=== PATIENT | female | born 1980 | race Caucasian/White ===

== ENCOUNTER 2017-01-29 02:29 | Emergency (ER) | payer OTHER | END 2017-01-29 03:34 | disposition home or self-care (01) | LOC: ERS 02:29 | DX: Z77.21 Contact with and (suspected) exposure to potentially hazardous body fluids (principal); I10 Essential (primary) hypertension; F41.9 Anxiety disorder, unspecified; F32.9 Major depressive disorder, single episode, unspecified; F17.210 Nicotine dependence, cigarettes, uncomplicated; Z79.899 Other long term (current) drug therapy; W46.0XXA Contact with hypodermic needle, initial encounter | CPT/HCPCS: 36415; 86706; 86803; 87389; 99283 ==

== ENCOUNTER 2022-12-20 18:20 | Emergency (ER) | payer OTHER, BC ==
[2022-12-20] MEDS ORDERED: Cyclobenzaprine 10 MG TAB ONE (18:44)
[2022-12-20 18:58] LABS: #Monocytes 0.5 thou/uL (0.11-0.59); #Neutrophils 8.6 thou/uL (1.40-6.50); %Basophils 0.2 % (0.0-1.0); %Eosinophils 0.1 % (0.0-10.0); %Lymphocytes 11.1 % (21.0-51.0); %Monocytes 4.6 % (0.0-10.0); %Neutrophils 83.6 % (42.0-75.0); Hematocrit 43.4 % (36.0-47.0); Hemoglobin 14.7 g/dL (12.0-16.0); Mean Corpuscular HGB CONC 33.9 g/dL (32.0-36.0); Mean Corpuscular Hemoglobin 31.1 pg (27.0-31.0); Mean Corpuscular Volume 91.9 fl (78.0-98.0); Mean Platelet Volume 9.5 fL (7.4-10.4); Platelet Count 269 10x3/uL (130-400); RBC Distribution Width 12.3 % (11.5-14.5); Red Blood Cell (RBC) Count 4.72 mill/uL (4.20-5.40); White Blood Cell (WBC) Count 10.3 10x3/uL (4.8-10.8)
[2022-12-20 19:07] LABS: BHCG - Serum Negative (NEGATIVE); Pregs Control Background? CLEAR/WHITE (CLR/WHITE); Pregs Control Bar Appear? YES (CONTROL BAR)
[2022-12-20 19:17] LABS: Prothrombin Time 13.3 sec (12.0-14.7)
[2022-12-20] MEDS ORDERED: Ketorolac Tromethamine 30 MG/ML VIAL ONE (19:17)
[2022-12-20 19:23] LABS: ALT (SGPT) 19 U/L (8-55); AST (SGOT) 20 U/L (5-34); Alkaline Phosphatase 41 U/L (40-110); Anion Gap 14 mmol/L (10-20); BUN (Urea Nitrogen) 21 mg/dL (7.0-18.7); Bilirubin, Total 0.5 mg/dL (0.2-1.2); Calc. Creatinine Clearance 0 mL/min (70-130); Calcium 9.8 mg/dL (7.8-10.44); Carbon Dioxide 21 mmol/L (22-29); Chloride 106 mmol/L (98-107); Estimated GFR 93; Globulin 2.7 g/dL (2.4-3.5); Glucose 98 mg/dL (70-105); Potassium 4.7 mmol/L (3.5-5.1); Protein, Total 7.7 g/dL (6.0-8.3); Sodium 136 mmol/L (136-145)
== END 2022-12-20 20:22 | disposition home or self-care (01) ==
LOC: ERS 18:20
DX: S02.2XXA Fracture of nasal bones, initial encounter for closed fracture (principal); I10 Essential (primary) hypertension; Z79.899 Other long term (current) drug therapy; V43.92XA Unspecified car occupant injured in collision with other type car in traffic accident, initial encounter
CPT/HCPCS: 12011; 36415; 70450; 70486; 71045; 80053; 84703; 85025; 85610; 85730; 96374; J1885

== ENCOUNTER 2022-12-29 08:56 | Day surgery (SDC) | payer BC ==
[2022-12-28 14:13] VITALS: BMI 19.5
[2022-12-29] MEDS ORDERED: EPINEPHrine 1 MG/ML VIAL ONE (10:00)
[2022-12-29] MEDS ORDERED: Bacitracin Zinc Ointment 30 gm TUBE ONE (10:01)
[2022-12-29] MEDS ORDERED: Oxymetazoline HCl 0.05% (30 ML BOT) ONE ×2 (10:01→10:20)
[2022-12-29] MEDS ORDERED: Lidocaine 1% (PF) 30 ML VIAL ONE (10:01)
[2022-12-29] MEDS ORDERED: fentaNYL PF 100 MCG/2 ML SYRINGE ONE (10:13)
[2022-12-29] MEDS ORDERED: Rocuronium Bromide 10 MG/ML (10ML VIAL) ONE (10:30)
[2022-12-29] MEDS ORDERED: Glycopyrrolate 0.2 MG/ML 5 ML SYRINGE ONE (10:30)
[2022-12-29] MEDS ORDERED: PROPOFOL 200 MG/20 ML VIAL ONE (10:30)
[2022-12-29] MEDS ORDERED: Lidocaine 1% PF 5 ML VIAL ONE (10:30)
[2022-12-29] MEDS ORDERED: NEOSTIGMINE 3 MG/3 ML SYR 3 MG/3 ML SYRINGE ONE (10:30)
[2022-12-29] MEDS ORDERED: Ondansetron PF 4 MG/2 ML Vial ONE (10:30)
[2022-12-29] MEDS ORDERED: fentaNYL 50 mcg/mL 1 mL Vial ONE (11:54)
[2022-12-29] MEDS ORDERED: Ondansetron ODT 4 MG TAB ONE (12:49)
== END 2022-12-29 13:07 | disposition home or self-care (01) ==
LOC: SDC 08:56
PROVIDERS: ATTEND Specialist
PROC: 0NSB34Z Reposition Nasal Bone with Internal Fixation Device, Percutaneous Approach (ICD-10-PCS; principal; 2022-12-29)
DX: S02.2XXB Fracture of nasal bones, initial encounter for open fracture (principal); I10 Essential (primary) hypertension; F32.A Depression, unspecified; F41.9 Anxiety disorder, unspecified; Z87.891 Personal history of nicotine dependence; V89.2XXA Person injured in unspecified motor-vehicle accident, traffic, initial encounter
CPT/HCPCS: J0171; J2001; J2405; J2704; J3010; Q0162

== ENCOUNTER 2023-03-27 14:31 | Outpatient (CLI) | payer BC | END 2023-03-27 14:32 | disposition home or self-care (01) | LOC: BICMAMMO 14:31 | PROVIDERS: ATTEND Obstetrics & Gynecology | DX: N63.10 Unspecified lump in the right breast, unspecified quadrant (principal); N60.01 Solitary cyst of right breast | CPT/HCPCS: 77066; G0279 ==